=== PATIENT | female | born 1975 | race Caucasian/White ===

== ENCOUNTER 2024-06-26 17:41 | Inpatient (IN) | payer SELFPAY ==
[~2024-06-26] VITALS: Ht 165.1 cm; Wt 64.0 kg
[2024-06-26 18:38] LABS: Urine Bacteria None Seen /hpf (None Seen)
[2024-06-26 19:04] LABS: Amphetamine Screen, Urine Neg (NEGATIVE); Barbiturate Scree,Urine Neg (NEGATIVE); Benzodiazephine Screen, Urine Neg (NEGATIVE); Cannabinoid Screen, Urine Neg (NEGATIVE); Cocaine Screen, Urine Neg (NEGATIVE); Opiate Scree,Urine Pos (NEGATIVE); Phencyclidine Screen, Urine Neg (NEGATIVE)
[2024-06-26 19:19] LABS: Urine Blood 3+ /uL (Negative); Urine Clarity Ex.Turbid (Clear); Urine Color Dark-Red (Yellow); Urine Protein, UAD 2+ (Negative); Urine Specific Gravity 1.018 (1.001-1.035); Urine Urobilinogen Normal (Negative); Urine pH 6.5 (5.0-9.0)
[2024-06-26 19:25] VITALS: PULSE 92; RESP 9; O2SAT 97
--- NOTE | 2024-06-26 19:30 | DVH ---
INDICATION: VAG BLEED TECHNIQUE: Multiple real-time grayscale transabdominal and endovaginal sonographic images along with color and duplex Doppler of the uterus and ovaries were obtained. COMPARISON: None FINDINGS: The uterus measures 13.2 x 7.6 x 7.9 cm. The endometrial stripe measures 1.8 cm. Nabothian cysts measuring up to 2.0 cm. The right ovary measures 4.3 x 3.8 x 5.7 cm. Right ovarian cyst measuring up to 3.8 cm. The left ovary measures 5.7 x 2.6 x 3.8 cm. Left ovarian dominant follicle. Subsequent color and duplex Doppler interrogation of the ovaries demonstrated symmetric vascular flow to both ovaries, though this does not exclude the possibility of torsion due to the dual blood suppl y. Heterogenously hyperechoic structures within the vaginal canal, likely blood products. IMPRESSION: 1. Thickened endometrium measuring 1.8 cm. Could represent hyperplasia, with malignancy not excluded. Tissue sampling is recommended. 2. Right ovarian simple cyst, for which no routine sonographic follow-up is necessary. 3. Probable blood products within the vaginal canal. 4. Enlarged, bulky uterus, without focal lesion identified on the provided images. 5. Nabothian cyst. HS:Y
[2024-06-26 19:32] LABS: Urine WBC 5 /hpf (0 - 5)
--- NOTE | 2024-06-26 19:39 | ED.PDOC ---
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 48-year-old female presents to the emergency department for evaluation of at least two day history of worsening vaginal bleed with clots and associated pelvic abdominal pain and nausea. Patient has been experiencing associated dizziness and shortness of breath with exertion. She said she never had any blood transfusions before. In triage patient was tachycardic at 1:28 a.m.. Blood pressure was stable. Patient denies taking any medications [id number]. Patient denies any use of drugs. Past Medcial History: Glaucoma Past Surgical History: DNC REVIEW OF SYSTEMS: CONSTITUTIONAL: Denies acute: fever, diaphoresis, chills, HEAD: Denies acute: headache, photophobia Eyes: Denies acute: Double vision, vision loss, eye pain, eye discharge. EARS: Denies acute: tinnitus, hearing loss, ear discharge, ear pain, THROAT: Denies acute: sore throat, swelling, difficulty swallowing , pain with swallowing, change in voice. NECK: Denies acute: neck pain, neck swelling, stiff neck. HEART: Denies acute : chest pain, palpitations, LUNGS: Denies acute: , wheezing, cough, hemoptysis ABDOMEN: Denies acute: abdominal pain, Nausea, Vomiting, diarrhea, melena , hematemesis, hematochezia SKIN: Denies acute: rash, redness, lesions, itchiness. EXTREMITIES: Denies acute: calf pain, numbness, tingling, weakness, denies pain in extremity. Denies acute: Low back pain. Neuro: Denies acute: focal neurological deficit, motor or sensory focal neurological deficit, tremors, seizure like activity, confusion, change in mental status, loss of bowel or bladder function, cauda equina like symptoms. : Denies acute: dysuria, hematuria, flank pain, increase in urinary frequency. PSYCH: Denies acute: hallucination, suicidal ideation, homicidal ideation. FEMALE: Denies acute: foul odor, unusual discharge. PHYSICAL EXAM: General: no acute distress, awake and alert. Head: normocephalic, atraumatic. Neck: supple, trachea is midline, no swelling. Throat: Normal phonation. Eyes:, no erythema, no purulent discharge, no proptosis, no icterus. Heart: regular tachycardic, no significant murmur appreciated. Lungs: no apparent respiratory distress, Able to speak in full sentences. No wheezing, no rhonchi, no crackles. No stridors Clear to auscultation bilaterally. Abdomen: Suprapubic tender to palpation, non distended, soft, no guarding, no rebound, + bowel sounds. Neuro: Awake, Alert, oriented to name, self, situation, follows commands GCS=15. Speech is normal. Skin: no petechia, no purpura, no cyanosis, slightly-pale, not jaundice. Lower extremities: --no - Pitting edema no deformity, no focal swelling, no calf TTP. Makes eye contact. moves all four extremities. Face: no apparent facial droop. Ambulating in the ED independently. Chief Complaint: Vaginal Bleed Time Seen by MD: 18:13 Allergies: Coded Allergies: NO KNOWN ALLERGIES (Unverified , 06/26/24) Information Source: Patient Was a procedure done? Was a procedure done?: No X-Ray, Labs, Meds, VS Vital Signs Date Time Temp Pulse Resp B/P (MAP) Pulse Ox O2 Delivery O2 Flow Rate FiO2 06/26/24 20:00 90 06/26/24 19:30 99.6 92 9 103/67 (79) 97 99.6 06/26/24 19:25 92 9 97 Room Air* 0 21 06/26/24 19:15 100 06/26/24 18:12 98.0 120 20 108/76 (87) 98 Lab Test 06/26/24 21:18 06/26/24 19:59 06/26/24 19:20 06/26/24 18:36 Range/Units Hemoglobin 6.5 *L 7.5 L 12.2-16.2 g/dL Hematocrit 20.5 #L 23.7 L 36.0-46.0 % Troponin I High Sensitivity 75 *H 41 *H </=34 ng/L Thyroid Stimulating Hormone (TSH) 2.35 0.55-4.78 uIU/mL Lactic Acid Level 1.6 0.4-2.0 mmol/L White Blood Count 8.7 4.4-10.8 10^3/uL Red Blood Count 2.71 L 4.0-5.20 10^6/uL Mean Corpuscular Volume 87.6 80.0-100.0 fL Mean Corpuscular Hemoglobin 27.8 L 28.0-32.0 pg Mean Corpuscular Hemoglobin Concent 31.8 L 32.0-36.0 g/dL Red Cell Distribution Width 13.5 11.8-14.3 % Platelet Count 397 140-450 10^3/uL Mean Platelet Volume 7.5 6.9-10.8 fL Neutrophils (%) (Auto) 88.3 H 37.0-80.0 % Lymphocytes (%) (Auto) 5.2 L 10.0-50.0 % Monocytes (%) (Auto) 6.2 0.0-12.0 % Eosinophils (%) (Auto) 0.1 0.0-7.0 % Basophils (%) (Auto) 0.2 0.0-2.0 % Neutrophils # (Auto) 7.7 1.6-8.6 10 ^3/uL Lymphocytes # (Auto) 0.5 0.4-5.4 10 ^3/uL Monocytes # (Auto) 0.5 0-1.3 10 ^3/uL Eosinophils # (Auto) 0 0-0.8 10 ^3/uL Basophils # (Auto) 0 0-0.2 10 ^3/uL Nucleated Red Blood Cells 0.0 % Prothrombin Time 11.3 9.3-11.8 sec Prothrombin Time INR 1.07 0.9-1.15 Activated Partial Thromboplast Time 24.1 L 24.5-34.5 SEC Sodium Level 140 136-145 mmol/L Potassium Level 3.1 L 3.5-5.1 mmol/L Chloride Level 106 98-107 mmol/L Carbon Dioxide Level 22 20-31 mmol/L Anion Gap 12 5-15 Blood Urea Nitrogen 8 L 9-23 mg/dL Creatinine 0.70 0.550-1.02 mg/dL Glomerular Filtration Rate Calc 107 >90 mL/min BUN/Creatinine Ratio 11.4 10.0-20.0 Serum Glucose 136 H 74-106 mg/dL Calcium Level 9.4 8.7-10.4 mg/dL Magnesium Level 1.8 1.6-2.6 mg/dL Total Bilirubin 0.3 0.2-1.0 mg/dL Aspartate Amino Transferase (AST) < 8 L 13-40 U/L Alanine Aminotransferase (ALT) 13 7-40 U/L Alkaline Phosphatase 47 46-116 U/L Total Protein 6.4 5.7-8.2 g/dL Albumin 4.3 3.2-4.8 g/dL Follicle Stimulating Hormone 13.53 SEE BELOW IU/L Luteinizing Hormone 1.9 IU/L Beta HCG, Quantitative 0.1 L 1.5-4.2 mIU/mL Urine Color Dark-red Yellow Urine Clarity Ex.turbid Clear Urine pH 6.5 5.0-9.0 Urine Specific [place] 1.018 1.001-1.035 Urine Protein 2+ H Negative Urine Ketones Negative Negative Urine Blood 3+ H Negative /uL Urine Nitrite Negative Negative Urine Bilirubin 2+ H Negative Urine Urobilinogen Normal Negative mg/dL Urine Leukocyte Esterase 1+ Negative /uL Urine RBC Tntc 0 - 4 /hpf Urine WBC 5 0 - 5 /hpf Urine Squamous Epithelial Cells Few <5 /hpf Urine Bacteria None seen None Seen /hpf Urine Glucose Normal Normal mg/dL Urine Opiates Screen Pos NEGATIVE Urine Fentanyl Screen Neg NEGATIVE Urine Barbiturates Screen Neg NEGATIVE Urine Phencyclidine Screen Neg NEGATIVE Urine Amphetamines Screen Neg NEGATIVE Urine Benzodiazepines Screen Neg NEGATIVE Urine Cocaine Screen Neg NEGATIVE Urine Cannabinoids Screen Neg NEGATIVE Current Medications Medications (Trade) Dose Ordered Sig/Mick Route Start Time Stop Time Status Last Admin Sodium Chloride 1,000 ml @ 1,000 mls/hr Q1H ONCE IV 06/26/24 18:15 06/26/24 19:14 DC 06/26/24 19:40 [place] [id number] Ph: [phone] DIAGNOSTIC IMAGING Diagnostic Imaging Report : [id number] Signed PATIENT: LIANNE CORDOVAACCT: [id number] UNIT: [id number] : 1975 LOC: ER ROOM / BED: / AGE / SEX: 48 / F ADM STATUS: REG ER SERVICE 0000 ORDERING PHYSICIAN: WALESKA JANG DO PROCEDURE(s): PELUS - PELVIC REASON: VAG BLEED ORDER NUMBER(s): [id number], ACCESSION NUMBER(s): [id number] INDICATION: VAG BLEED TECHNIQUE: Multiple real-time grayscale transabdominal and endovaginal sonographic images along with color and duplex Doppler of the uterus and ovaries were obtained. COMPARISON: None FINDINGS: The uterus measures 13.2 x 7.6 x 7.9 cm. The endometrial stripe measures 1.8 cm. Nabothian cysts measuring up to 2.0 cm. The right ovary measures 4.3 x 3.8 x 5.7 cm. Right ovarian cyst measuring up to 3.8 cm. The left ovary measures 5.7 x 2.6 x 3.8 cm. Left ovarian dominant follicle. Subsequent color and duplex Doppler interrogation of the ovaries demonstrated symmetric vascular flow to both ovaries, though this does not exclude the possibility of torsion due to the dual blood supply. Heterogenously hyperechoic structures within the vaginal canal, likely blood products. IMPRESSION: 1. Thickened endometrium measuring 1.8 cm. Could represent hyperplasia, with malignancy not excluded. Tissue sampling is recommended. 2. Right ovarian simple cyst, for which no routine sonographic follow-up is necessary. 3. Probable blood products within the vaginal canal. 4. Enlarged, bulky uterus, without focal lesion identified on the provided images. 5. Nabothian cyst. HS:Y ATED BY: GLO RUBIO DO DICTATED DATE/TIME: 06/26/241926 SIGNED BY: GLO RUBIO DO SIGNED DATE/TIME: 06/26/241926 CC: Time of 1ST Reevaluation: 21:59 (The case was discussed with the OB Gyne team (HPI, physical exam, labs and diagnostic tests that were available at the time of disposition, ED course, treatment plan) on the phone. They agreed to follow up with the patient in consult tomorrow. They recommended that patient gets a workup for FSH, LH, TSH, 2 units of packed red blood cells, [address] Chavez) Reevaluation 1ST: Unchanged Time of 2ND Reevaluation: 22:03 (Spoke with the admitting team who said they will order the blood products per OB Gyne recommendations and they were also ordered the LH) Patient Education/Counseling: Diagnosis, Treatment Family Education/Counseling: No Family Present Comments Patient presented with the above HPI.---vaginal bleed---workup was initiated. patient was found with the above mentioned diagnosis. Patient was given: Fluids. Patient ED course and VS have been stabilized. Patient has been reassessed in the ED and remained in a stable condition. Pertinent incidental findings were discussed with the patient and/or family. Patient/family voices understanding and is agreeable with plan. Patient has been observed in the ED adequate length of time to insure impr ovement/stability. patient was admitted to the medicine team for further evaluation and treatment of their presentation. OB Gyne was consulted. Patient will need blood product transfusion which will be managed by the medicine team. All the reports of any imaging studies that were ordered by myself were reviewed by myself. Departure 1 Departure Time of Disposition: 20:55 Impression: Primary Impression: Symptomatic anemia Additional Impressions: Menorrhagia Elevated troponin Disposition: ADMITTED INPATIENT Admit to: Tele Condition: Guarded Discharged With: Self Critical Care Note Critical Care Time?: Yes (45 min-critical care time only) WALESKA JANG DO Jun 26, 2024 19:39
[2024-06-26] MEDS: SODIUM CHLORIDE 0.9% 1,000 ML IV ONE (19:40)
[2024-06-26 19:48] LABS: Basophils # (auto) 0 10 ^3/uL (0-0.2); Basophils % (auto) 0.2 % (0.0-2.0); Eosinophils # (auto) 0 10 ^3/uL (0-0.8); Eosinophils % (auto) 0.1 % (0.0-7.0); Hematocrit 23.7 % (36.0-46.0); Hemoglobin 7.5 g/dL (12.2-16.2); Lymphocytes # (auto) 0.5 10 ^3/uL (0.4-5.4); Lymphocytes % (auto) 5.2 % (10.0-50.0); Mean Corpuscular Hemoglobin 27.8 pg (28.0-32.0); Mean Corpuscular Hgb Conc. 31.8 g/dL (32.0-36.0); Mean Corpuscular Volume 87.6 fL (80.0-100.0); Monocytes # (auto) 0.5 10 ^3/uL (0-1.3); Monocytes % (auto) 6.2 % (0.0-12.0); Neutrophils # (auto) 7.7 10 ^3/uL (1.6-8.6); Neutrophils % (auto) 88.3 % (37.0-80.0); Platelet Count (auto) 397 10^3/uL (140-450); Red Blood Cells 2.71 10^6/uL (4.0-5.20); Red Cell Distribution Width 13.5 % (11.8-14.3); White Blood Cell 8.7 10^3/uL (4.4-10.8)
[2024-06-26 20:08] LABS: Alanine Aminotransferase 13 U/L (7-40); Albumin 4.3 g/dL (3.2-4.8); Alkaline Phosphatase 47 U/L (46-116); Anion Gap 12 (5-15); Aspartate Aminotransferase < 8 U/L (13-40); BUN/Creatinine Ratio 11.4 (10.0-20.0); Bilirubin, Total 0.3 mg/dL (0.2-1.0); Blood Urea Nitrogen 8 mg/dL (9-23); Calcium 9.4 mg/dL (8.7-10.4); Carbon Dioxide 22 mmol/L (20-31); Chloride 106 mmol/L (98-107); Glucose 136 mg/dL (74-106); Magnesium 1.8 mg/dL (1.6-2.6); Potassium 3.1 mmol/L (3.5-5.1); Sodium 140 mmol/L (136-145); Total Protein 6.4 g/dL (5.7-8.2)
[2024-06-26 21:35] LABS: Hematocrit 20.5 % (36.0-46.0)
[2024-06-26 21:46] LABS: Hemoglobin 6.5 g/dL (12.2-16.2)
[2024-06-26] MEDS ORDERED: NITROGLYCERIN 0.4 MG SL TAB SL PRN (22:15)
[2024-06-26] MEDS ORDERED: TEMAZEPAM 15 MG CAP PO PRN (22:15)
[2024-06-26 22:45] LABS: INR 1.07 (0.9-1.15); Partial Thromboplastin Time 24.1 SEC (24.5-34.5); Prothrombin Time 11.3 sec (9.3-11.8)
[2024-06-26 23:20] VITALS: BP 95/63; PULSE 91; RESP 9; TEMP 99.9
[2024-06-26 23:40] VITALS: BP 108/65; PULSE 90; RESP 8; TEMP 99.9
[2024-06-26] MEDS: ACETAMINOPHEN 325 MG TAB PO PRN (23:56)
[2024-06-27] VITALS (11 sets, daily range): BP systolic 93–124; BP diastolic 50–75; PULSE 66–89; RESP 10–20; TEMP 98.2–99.5; O2SAT 98–100
--- NOTE | 2024-06-27 00:17 | DVHHP2 ---
History of Present Illness Reason for Visit: Vaginal bleed History of Present Illness 48-year-old female presents for evaluation of vaginal bleed. Patient reports having irregular bleeding that started a month ago and subsided. She states starting to bleed again two days ago, heavy clots and lower abdominal pain. She reports dizziness and shortness for breath. Denies chest pain. No other acute complaints reported. Past Medical History Glaucoma Past Surgical History D&C Family History Noncontributory Smoke: No ALCOHOL: occassional Drugs: None Lives: with Family Review of Systems Review of Systems Review of systems are currently negative otherwise addressed in HPI. Allergies: Coded Allergies: NO KNOWN ALLERGIES (Unverified , 06/26/24) Medications Current Medications Medications Dose Ordered Sig/Mick Route Start Time Stop Time Status Last Admin Dose Admin Temazepam 15 mg QHSP PRN PO 06/26/24 22:15 Ondansetron HCl 4 mg Q4HP PRN IV 06/26/24 22:15 Acetaminophen 650 mg Q6HP PRN PO 06/26/24 22:15 06/26/24 23:56 650 MG Nitroglycerin 0.4 mg Q5MINP PRN SL 06/26/24 22:15 Morphine Sulfate 2 mg Q30M PRN IV 06/26/24 22:15 Exam Vital Signs Vital Signs Date Time Temp Pulse Resp B/P (MAP) Pulse Ox O2 Delivery O2 Flow Rate FiO2 06/26/24 23:40 80 22 148/87 (107) 94 06/26/24 23:40 99.9 99.9 06/26/24 19:25 Room Air* 0 21 Exam Gen: 48-year-old female in mild distress Skin: Warm, dry, pale, no rash. HEENT: Normocephalic atraumatic, mucous membranes moist and pink. Neck: Cervical and supraclavicular nodes normal without enlargement, trachea is midline, thyroid gland is normal without masses. Pulmonary: Clear to auscultation and percussion bilaterally. Cardiac: Regular rate and rhythm. No murmur Abdomen: Soft, nontender, nondistended, bowel sounds present all 4 quadrants, no guarding, no rigidity, no organomegaly. Extremities: No cyanosis, clubbing, no edema Neuro: Cranial nerves II through XII grossly intact, normal affect and speech, no focal motor deficits. Labs/Xrays ORDERING PHYSICIAN: WALESKA JANG DO PROCEDURE(s): PELUS - PELVIC REASON: VAG BLEED ORDER NUMBER(s): [id number], ACCESSION NUMBER(s): [id number] INDICATION: VAG BLEED TECHNIQUE: Multiple real-time grayscale transabdominal and endovaginal sonog raphic images along with color and duplex Doppler of the uterus and ovaries were obtained. COMPARISON: None FINDINGS: The uterus measures 13.2 x 7.6 x 7.9 cm. The endometrial stripe measures 1.8 cm. Nabothian cysts measuring up to 2.0 cm. The right ovary measures 4.3 x 3.8 x 5.7 cm. Right ovarian cyst measuring up to 3.8 cm. The left ovary measures 5.7 x 2.6 x 3.8 cm. Left ovarian dominant follicle. Subsequent color and duplex Doppler interrogation of the ovaries demonstrated symmetric vascular flow to both ovaries, though this does not exclude the possibility of torsion due to the dual blood supply. Heterogenously hyperechoic structures within the vaginal canal, likely blood products. IMPRESSION: 1. Thickened endometrium measuring 1.8 cm. Could represent hyperplasia, with malignancy not excluded. Tissue sampling is recommended. 2. Right ovarian simple cyst, for which no routine sonographic follow-up is necessary. 3. Probable blood products within the vaginal canal. 4. Enlarged, bulky uterus, without focal lesion identified on the provided images. 5. Nabothian cyst. HS:Y Labs Test 06/26/24 22:19 06/26/24 21:18 06/26/24 19:59 06/26/24 19:20 Range/Units Troponin I High Sensitivity 75 *H </=34 ng/L Hemoglobin 6.5 *L 12.2-16.2 g/dL Hematocrit 20.5 #L 36.0-46.0 % Thyroid Stimulating Hormone (TSH) 2.35 0.55-4.78 uIU/mL Lactic Acid Level 1.6 0.4-2.0 mmol/L White Blood Count 8.7 4.4-10.8 10^3/uL Red Blood Count 2.71 L 4.0-5.20 10^6/uL Mean Corpuscular Volume 87.6 80.0-100.0 fL Mean Corpuscular Hemoglobin 27.8 L 28.0-32.0 pg Mean Corpuscular Hemoglobin Concent 31.8 L 32.0-36.0 g/dL Red Cell Distribution Width 13.5 11.8-14.3 % Platelet Count 397 140-450 10^3/uL Mean Platelet Volume 7.5 6.9-10.8 fL Neutrophils (%) (Auto) 88.3 H 37.0-80.0 % Lymphocytes (%) (Auto) 5.2 L 10.0-50.0 % Monocytes (%) (Auto) 6.2 0.0-12.0 % Eosinophils (%) (Auto) 0.1 0.0-7.0 % Basophils (%) (Auto) 0.2 0.0-2.0 % Neutrophils # (Auto) 7.7 1.6-8.6 10 ^3/uL Lymphocytes # (Auto) 0.5 0.4-5.4 10 ^3/uL Monocytes # (Auto) 0.5 0-1.3 10 ^3/uL Eosinophils # (Auto) 0 0-0.8 10 ^3/uL Basophils # (Auto) 0 0-0.2 10 ^3/uL Nucleated Red Blood Cells 0.0 % Prothrombin Time 11.3 9.3-11.8 sec Prothrombin Time INR 1.07 0.9-1.15 Activated Partial Thromboplast Time 24.1 L 24.5-34.5 SEC Sodium Level 140 136-145 mmol/L Potassium Level 3.1 L 3.5-5.1 mmol/L Chloride Level 106 98-107 mmol/L Carbon Dioxide Level 22 20-31 mmol/L Anion Gap 12 5-15 Blood Urea Nitrogen 8 L 9-23 mg/dL Creatinine 0.70 0.550-1.02 mg/dL Glomerular Filtration Rate Calc 107 >90 mL/min BUN/Creatinine Ratio 11.4 10.0-20.0 Serum Glucose 136 H 74-106 mg/dL Calcium Level 9.4 8.7-10.4 mg/dL Magnesium Level 1.8 1.6-2.6 mg/dL Total Bilirubin 0.3 0.2-1.0 mg/dL Aspartate Amino Transferase (AST) < 8 L 13-40 U/L Alanine Aminotransferase (ALT) 13 7-40 U/L Alkaline Phosphatase 47 46-116 U/L Total Protein 6.4 5.7-8.2 g/dL Albumin 4.3 3.2-4.8 g/dL Follicle Stimulating Hormone 13.53 SEE BELOW IU/L Luteinizing Hormone 1.9 IU/L Beta HCG, Quantitative 0.1 L 1.5-4.2 mIU/mL Test 06/26/24 18:36 Range/Units Urine Color Dark-red Yellow Urine Clarity Ex.turbid Clear Urine pH 6.5 5.0-9.0 Urine Specific [place] 1.018 1.001-1.035 Urine Protein 2+ H Negative Urine Ketones Negative Negative Urine Blood 3+ H Negative /uL Urine Nitrite Negative Negative Urine Bilirubin 2+ H Negative Urine Urobilinogen Normal Negative mg/dL Urine Leukocyte Esterase 1+ Negative /uL Urine RBC Tntc 0 - 4 /hpf Urine WBC 5 0 - 5 /hpf Urine Squamous Epithelial Cells Few <5 /hpf Urine Bacteria None seen None Seen /hpf Urine Glucose Normal Normal mg/dL Urine Opiates Screen Pos NEGATIVE Urine Fentanyl Screen Neg NEGATIVE Urine Barbiturates Screen Neg NEGATIVE Urine Phencyclidine Screen Neg NEGATIVE Urine Amphetamines Screen Neg NEGATIVE Urine Benzodiazepines Screen Neg NEGATIVE Urine Cocaine Screen Neg NEGATIVE Urine Cannabinoids Screen Neg NEGATIVE Assessment/Plan Assessment/Plan Assessment Symptomatic anemia Vaginal bleed Hypokalemia Plan Admit the patient to telemetry to the hospitalist OBGYN consultation 2 units of packed red cells, one pain ordered Keep hemoglobin above seven Continue treatment per orders. Plan discussed with: Patient My Orders Orders - JERMAIN KILGORE M AGACNP Procedure Category Date Status Time Packedcells -Active BBK 06/26/24 In Process Bleeding 22:02 Frozen Plasma BBK 06/26/24 In Process 22:02 * Cardiology Consult CONS 06/26/24 Transmitted 22:02 Admit ADMIT 06/26/24 Transmitted 22:02 Temazepam (Restoril) PHA 06/26/24 In Process 22:15 Ondansetron Hcl PHA 06/26/24 In Process (Zofran) 22:15 Complete Blood Count LAB 06/27/24 Logged 04:00 Comprehensive LAB 06/27/24 Logged Metabolic Panel 04:00 Echo 2d Mode Cardiac US 06/26/24 Logged DOP 22:02 Condition: Fair PATRICE 06/26/24 In Process 22:02 Acetaminophen Tablet PHA 06/26/24 In Process (Tylenol Tablet) 22:15 Bedrest With Bathroom [facility] 06/26/24 In Process Privileg 22:02 Nitroglycerin [facility] 06/26/24 In Process Sublingual (Ntrostat 22:15 Morphine Sulfate PHA 06/26/24 In Process Injection 22:15 Stat Ekg For Chest [facility] 06/26/24 In Process Pain 22:02 Notify Md Of Changes [facility] 06/26/24 In Process From Base 22:02 Dairy Equipment Specialist For [facility] 06/26/24 In Process 24 Hours 22:02 Emergency Dysrhythmia [facility] 06/26/24 In Process Protocol 22:02 Rhythm Strips Once [facility] 06/26/24 In Process Every Shift 22:02 Oxygen By Nasal RT 06/26/24 Transmitted Cannula 22:02 Ceftriaxone Ivpb PHA 06/27/24 Verified Rocephin 09:00 Date of Service: Jun 26, 2024 Billing Provider: JERMAIN KILGORE Common Visit Codes: [id number] INP/OBS CARE (HIGH) JERMAIN KILGORE Jun 27, 2024 00:17
[2024-06-27] MEDS: ONDANSETRON HCL 4 MG/2 ML VIAL IV PRN (01:17)
[2024-06-27] MEDS: MORPHINE SULFATE INJ 2 MG/ml SYRG IV PRN (01:17)
--- NOTE | 2024-06-27 08:31 | DVHINCON2 ---
Date Seen: Jun 27, 2024 Referring Physician ROBB Brar Reason for Consultation Elevated trop History of Present Illness This is a pleasant 48-year-old female who presented to the emergency room with a chief complaint of menorrhagia for two days. The patient complains of heavy vaginal bleed associated with golf ball-sized clots, change of pads q2h, pelvic pain, dizziness, and BRISCOE. She started her cycle on 06/23/2024. Denies chest pain, palpitations, diaphoresis, or syncopal events. She presented in a sinus tachycardia rhythm in the 120s bpm and found with a hgb level as low as 6.5 g/dL for which she underwent blood/FFP transfusions. The heart rate has normalized after transfusions. Cardiology consulted given a troponin level peaking at 75 ng/L. Significant medical history includes glaucoma, D&C in 2004, self- diagnosed anemia, and A2. Past Medical History Past medical history reviewed. No other significant than mentioned above. Past Surgical History D&C in 2004 Family History Family history reviewed. Social History Denies the use of illicit drugs, alcohol, or tobacco use. Allergies: Coded Allergies: NO KNOWN ALLERGIES (Unverified , 06/26/24) Home Meds Home medications reviewed. Current Medications Current Medications Medications (Trade) Dose Ordered Sig/Mick Route PRN Reason Start Time Stop Time Status Last Admin Temazepam (Restoril) 15 mg QHSP PRN PO FOR INSOMNIA 06/26/24 22:15 Ondansetron HCl (Zofran) 4 mg Q4HP PRN IV NAUSEA / VOMITING 06/26/24 22:15 06/27/24 01:17 Acetaminophen (Tylenol Tablet) 650 mg Q6HP PRN PO PAIN SCALE 1-3 OR TEMP>100.4 06/26/24 22:15 06/26/24 23:56 Nitroglycerin (Ntrostat Sublingual) 0.4 mg Q5MINP PRN SL FOR CHEST PAIN 06/26/24 22:15 Morphine Sulfate 2 mg Q30M PRN IV FOR CHEST PAIN 06/26/24 22:15 06/27/24 01:17 Ceftriaxone Sodium 50 ml @ 100 mls/hr DAILY@09 IV 06/27/24 09:00 Review of Systems Constitutional: No symptom reported Ears, Nose, & Throat: No symptom reported Eyes: No symptom reported Neurological: Dizziness Pulmonary/Respiratory: SOB Cardiovascular: No symptom reported Gastrointestinal: No symptom reported Genitourinary: Menorrhagia Musculoskeletal: No symptom reported Skin: No symptom reported Psychiatric: No symptom reported Endocrine: No symptom reported Hemotologic/Lymphatic: No symptom reported Vital Signs Vital Signs Date Time Temp Pulse Resp B/P (MAP) Pulse Ox O2 Delivery O2 Flow Rate FiO2 06/27/24 08:00 83 9 121/73 (89) 99 06/27/24 06:15 98.8 98.8 06/26/24 19:25 Room Air* 0 21 Physical Exam General Appearance: Cooperative. Well developed. Well nourished. In no acute distress Head Exam: Normal inspection Neck Exam: Normal inspection. Non-tender. Normal alignment Pulmonary/Respiratory: Chest non-tender. Clear bilateral breath sounds Cardiovascular/Chest: Regular rate and rhythm. S1, S2. NSr. No murmurs. No JVD. Peripheral Pulses: 2+ Radial (R). 2+ Radial (L). 2+ Pedal (R). 2+ Pedal (L) Abdominal Exam: Normal bowel sounds. Soft. Nontender. No hepatospenomegaly. No masses Ankle Exam: Negative ankle edema Lower extremities: Negative lower extremity edema Neuro/Mental Status: A&O x4. Coherent Thoughts/Psych: Normal thought pattern. Appropriate mood and affect. Good judgement and insight Appearance: In no acute distress Skin Exam: Normal inspection. Pale color. Warm. Dry Labs/Diagnostic Data Labs Test 06/26/24 22:19 06/26/24 21:18 06/26/24 19:59 06/26/24 19:20 Range/Units Troponin I High Sensitivity 75 *H </=34 ng/L Hemoglobin 6.5 *L 12.2-16.2 g/dL Hematocrit 20.5 #L 36.0-46.0 % Thyroid Stimulating Hormone (TSH) 2.35 0.55-4.78 uIU/mL Lactic Acid Level 1.6 0.4-2.0 mmol/L White Blood Count 8.7 4.4-10.8 10^3/uL Red Blood Count 2.71 L 4.0-5.20 10^6/uL Mean Corpuscular Volume 87.6 80.0-100.0 fL Mean Corpuscular Hemoglobin 27.8 L 28.0-32.0 pg Mean Corpuscular Hemoglobin Concent 31.8 L 32.0-36.0 g/dL Red Cell Distribution Width 13.5 11.8-14.3 % Platelet Count 397 140-450 10^3/uL Mean Platelet Volume 7.5 6.9-10.8 fL Neutrophils (%) (Auto) 88.3 H 37.0-80.0 % Lymphocytes (%) (Auto) 5.2 L 10.0-50.0 % Monocytes (%) (Auto) 6.2 0.0-12.0 % Eosinophils (%) (Auto) 0.1 0.0-7.0 % Basophils (%) (Auto) 0.2 0.0-2.0 % Neutrophils # (Auto) 7.7 1.6-8.6 10 ^3/uL Lymphocytes # (Auto) 0.5 0.4-5.4 10 ^3/uL Monocytes # (Auto) 0.5 0-1.3 10 ^3/uL Eosinophils # (Auto) 0 0-0.8 10 ^3/uL Basophils # (Auto) 0 0-0.2 10 ^3/uL Nucleated Red Blood Cells 0.0 % Prothrombin Time 11.3 9.3-11.8 sec Prothrombin Time INR 1.07 0.9-1.15 Activated Partial Thromboplast Time 24.1 L 24.5-34.5 SEC Sodium Level 140 136-145 mmol/L Potassium Level 3.1 L 3.5-5.1 mmol/L Chloride Level 106 98-107 mmol/L Carbon Dioxide Level 22 20-31 mmol/L Anion Gap 12 5-15 Blood Urea Nitrogen 8 L 9-23 mg/dL Creatinine 0.70 0.550-1.02 mg/dL Glomerular Filtration Rate Calc 107 >90 mL/min BUN/Creatinine Ratio 11.4 10.0-20.0 Serum Glucose 136 H 74-106 mg/dL Calcium Level 9.4 8.7-10.4 mg/dL Magnesium Level 1.8 1.6-2.6 mg/dL Total Bilirubin 0.3 0.2-1.0 mg/dL Aspartate Amino Transferase (AST) < 8 L 13-40 U/L Alanine Aminotransferase (ALT) 13 7-40 U/L Alkaline Phosphatase 47 46-116 U/L Total Protein 6.4 5.7-8.2 g/dL Albumin 4.3 3.2-4.8 g/dL Follicle Stimulating Hormone 13.53 SEE BELOW IU/L Luteinizing Hormone 1.9 IU/L Beta HCG, Quantitative 0.1 L 1.5-4.2 mIU/mL Test 06/26/24 18:36 Range/Units Urine Color Dark-red Yellow Urine Clarity Ex.turbid Clear Urine pH 6.5 5.0-9.0 Urine Specific [place] 1.018 1.001-1.035 Urine Protein 2+ H Negative Urine Ketones Negative Negative Urine Blood 3+ H Negative /uL Urine Nitrite Negative Negative Urine Bilirubin 2+ H Negative Urine Urobilinogen Normal Negative mg/dL Urine Leukocyte Esterase 1+ Negative /uL Urine RBC Tntc 0 - 4 /hpf Urine WBC 5 0 - 5 /hpf Urine Squamous Epithelial Cells Few <5 /hpf Urine Bacteria None seen None Seen /hpf Urine Glucose Normal Normal mg/dL Urine Opiates Screen Pos NEGATIVE Urine Fentanyl Screen Neg NEGATIVE Urine Barbiturates Screen Neg NEGATIVE Urine Phencyclidine Screen Neg NEGATIVE Urine Amphetamines Screen Neg NEGATIVE Urine Benzodiazepines Screen Neg NEGATIVE Urine Cocaine Screen Neg NEGATIVE Urine Cannabinoids Screen Neg NEGATIVE Assessment Menorrhagia with severe anemia NSTEMI type 2 secondary to above Rule out pelvic malignancy Hx D&C in 2004 A2 Plan/Recommendation (Dr. Soto) The patient presents as an NSTEMI type 2 secondary to menorrhagia with severe an emia. We recommend close monitoring of H&H, volume resuscitation, and follow-up on mri manager recommendations. Replete electrolytes as necessary. Blood work ordered, primary care team to follow. There is no further cardiac workup indicated at this time. Thank you for allowing us to participate in this patient's care. Please call if you have any questions or concerns. This medical document was created using an electronic medical record system with voice recognition software and computerized dictation system. Although this document has been carefully reviewed, there might still be some phonetic and typographical errors. Occasional wrong-word or ``sound-alike substitutions may have occurred due to the inherent limitations of voice recognition software. These areas are purely typographical due to imperfections of the software programs and do not reflect any compromise in the patient's medical care. Please read the chart carefully and recognize, using context, where these substitutions have occurred. Plan discussed with: Patient, Other Date of Service: Jun 27, 2024 Billing Provider: YUE SOTO MD Cardiology Common Codes: 75581-CNOBCTS INP/OBS CARE (High) CARLEY RUBY [facility] Jun 27, 2024 08:31
--- NOTE | 2024-06-27 08:33 | DVHINCON2 ---
Date of service: Jun 27, 2024 Reason for Consultation menorrhagia History of Present Illness 48yo female pt reports having excessive vaginal bleeding and irregular menses, feels a little better after blood transfusion. Denies dizziness when laying down. Pt does not have health insurance. 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, bleeds for 2 weeks then spots for 1 week then bleeds for 2 weeks again, LMP started 06/23/24, moderate to heavy flow with clots and cramping pain, takes ibuprofen/norco PRN and uses heating pad at home for pain mgmt Last PAP was normal in 2017, pt reports having new sexual partner since, denies receiving Gardasil vaccine in the past OB hx: , NSVDx5, TABx1, SABx1 with D&C in 2004 Past Medical History Anemia Past Surgical History D&C in 2004 Family History mother: had heavy periods and had hysterectomy at age 36 paternal grandmother: ovarian cancer Social History denies Allergies: Coded Allergies: NO KNOWN ALLERGIES (Unverified , 06/26/24) 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 Current Medications Current Medications Medications (Trade) Dose Ordered Sig/Mick Route PRN Reason Start Time Stop Time Status Last Admin Temazepam (Restoril) 15 mg QHSP PRN PO FOR INSOMNIA 06/26/24 22:15 Ondansetron HCl (Zofran) 4 mg Q4HP PRN IV NAUSEA / VOMITING 06/26/24 22:15 06/27/24 01:17 Acetaminophen (Tylenol Tablet) 650 mg Q6HP PRN PO PAIN SCALE 1-3 OR TEMP>100.4 06/26/24 22:15 06/26/24 23:56 Nitroglycerin (Ntrostat Sublingual) 0.4 mg Q5MINP PRN SL FOR CHEST PAIN 06/26/24 22:15 Morphine Sulfate 2 mg Q30M PRN IV FOR CHEST PAIN 06/26/24 22:15 06/27/24 01:17 Ceftriaxone Sodium 50 ml @ 100 mls/hr DAILY@09 IV 06/27/24 09:00 Review of Systems Review of systems are currently negative otherwise addressed in HPI. Vital Signs Vital Signs Date Time Temp Pulse Resp B/P (MAP) Pulse Ox O2 Delivery O2 Flow Rate FiO2 06/27/24 08:00 83 9 121/73 (89) 99 06/27/24 06:15 98.8 98.8 06/26/24 19:25 Room Air* 0 21 Physical Exam : light vaginal bleeding noted on peripad Labs/Diagnostic Data [place] [address] Ph: [phone] DIAGNOSTIC IMAGING Diagnostic Imaging Report : [id number] Signed PATIENT: LIANNE CORDOVAACCT: [id number] UNIT: [id number] : 1975 LOC: ER ROOM / BED: / AGE / SEX: 48 / F ADM STATUS: REG ER SERVICE 0000 ORDERING PHYSICIAN: WALESKA JANG DO PROCEDURE(s): PELUS - PELVIC REASON: VAG BLEED ORDER NUMBER(s): [id number], ACCESSION NUMBER(s): [id number] INDICATION: VAG BLEED TECHNIQUE: Multiple real-time grayscale transabdominal and endovaginal sonographic images along with color and duplex Doppler of the uterus and ovaries were obtained. COMPARISON: None FINDINGS: The uterus measures 13.2 x 7.6 x 7.9 cm. The endometrial stripe measures 1.8 cm. Nabothian cysts measuring up to 2.0 cm. The right ovary measures 4.3 x 3.8 x 5.7 cm. Right ovarian cyst measuring up to 3.8 cm. The left ovary measures 5.7 x 2.6 x 3.8 cm. Left ovarian dominant follicle. Subsequent color and duplex Doppler interrogation of the ovaries demonstrated symmetric vascular flow to both ovaries, though this does not exclude the possibility of torsion due to the dual blood supply. Heterogenously hyperechoic structures within the vaginal canal, likely blood products. IMPRESSION: 1. Thickened endometrium measuring 1.8 cm. Could represent hyperplasia, with malignancy not excluded. Tissue sampling is recommended. 2. Right ovarian simple cyst, for which no routine sonographic follow-up is necessary. 3. Probable blood products within the vaginal canal. 4. Enlarged, bulky uterus, without focal lesion identified on the provided images. 5. Nabothian cyst. HS:Y ATED BY: GLO RUBIO DO DICTATED DATE/TIME: 06/26/241926 SIGNED BY: GLO RUBIO DO SIGNED DATE/TIME: 06/26/241926 CC: Labs Test 06/26/24 22:19 06/26/24 21:18 06/26/24 19:59 06/26/24 19:20 Range/Units Troponin I High Sensitivity 75 *H </=34 ng/L Hemoglobin 6.5 *L 12.2-16.2 g/dL Hematocrit 20.5 #L 36.0-46.0 % Thyroid Stimulating Hormone (TSH) 2.35 0.55-4.78 uIU/mL Lactic Acid Level 1.6 0.4-2.0 mmol/L White Blood Count 8.7 4.4-10.8 10^3/uL Red Blood Count 2.71 L 4.0-5.20 10^6/uL Mean Corpuscular Volume 87.6 80.0-100.0 fL Mean Corpuscular Hemoglobin 27.8 L 28.0-32.0 pg Mean Corpuscular Hemoglobin Concent 31.8 L 32.0-36.0 g/dL Red Cell Distribution Width 13.5 11.8-14.3 % Platelet Count 397 140-450 10^3/uL Mean Platelet Volume 7.5 6.9-10.8 fL Neutrophils (%) (Auto) 88.3 H 37.0-80.0 % Lymphocytes (%) (Auto) 5.2 L 10.0-50.0 % Monocytes (%) (Auto) 6.2 0.0-12.0 % Eosinophils (%) (Auto) 0.1 0.0-7.0 % Basophils (%) (Auto) 0.2 0.0-2.0 % Neutrophils # (Auto) 7.7 1.6-8.6 10 ^3/uL Lymphocytes # (Auto) 0.5 0.4-5.4 10 ^3/uL Monocytes # (Auto) 0.5 0-1.3 10 ^3/uL Eosinophils # (Auto) 0 0-0.8 10 ^3/uL Basophils # (Auto) 0 0-0.2 10 ^3/uL Nucleated Red Blood Cells 0.0 % Prothrombin Time 11.3 9.3-11.8 sec Prothrombin Time INR 1.07 0.9-1.15 Activated Partial Thromboplast Time 24.1 L 24.5-34.5 SEC Sodium Level 140 136-145 mmol/L Potassium Level 3.1 L 3.5-5.1 mmol/L Chloride Level 106 98-107 mmol/L Carbon Dioxide Level 22 20-31 mmol/L Anion Gap 12 5-15 Blood Urea Nitrogen 8 L 9-23 mg/dL Creatinine 0.70 0.550-1.02 mg/dL Glomerular Filtration Rate Calc 107 >90 mL/min BUN/Creatinine Ratio 11.4 10.0-20.0 Serum Glucose 136 H 74-106 mg/dL Calcium Level 9.4 8.7-10.4 mg/dL Magnesium Level 1.8 1.6-2.6 mg/dL Total Bilirubin 0.3 0.2-1.0 mg/dL Aspartate Amino Transferase (AST) < 8 L 13-40 U/L Alanine Aminotransferase (ALT) 13 7-40 U/L Alkaline Phosphatase 47 46-116 U/L Total Protein 6.4 5.7-8.2 g/dL Albumin 4.3 3.2-4.8 g/dL Follicle Stimulating Hormone 13.53 SEE BELOW IU/L Luteinizing Hormone 1.9 IU/L Beta HCG, Quantitative 0.1 L 1.5-4.2 mIU/mL Test 06/26/24 18:36 Range/Units Urine Color Dark-red Yellow Urine Clarity Ex.turbid Clear Urine pH 6.5 5.0-9.0 Urine Specific [place] 1.018 1.001-1.035 Urine Protein 2+ H Negative Urine Ketones Negative Negative Urine Blood 3+ H Negative /uL Urine Nitrite Negative Negative Urine Bilirubin 2+ H Negative Urine Urobilinogen Normal Negative mg/dL Urine Leukocyte Esterase 1+ Negative /uL Urine RBC Tntc 0 - 4 /hpf Urine WBC 5 0 - 5 /hpf Urine Squamous Epithelial Cells Few <5 /hpf Urine Bacteria None seen None Seen /hpf Urine Glucose Normal Normal mg/dL Urine Opiates Screen Pos NEGATIVE Urine Fentanyl Screen Neg NEGATIVE Urine Barbiturates Screen Neg NEGATIVE Urine Phencyclidine Screen Neg NEGATIVE Urine Amphetamines Screen Neg NEGATIVE Urine Benzodiazepines Screen Neg NEGATIVE Urine Cocaine Screen Neg NEGATIVE Urine Cannabinoids Screen Neg NEGATIVE Plan Repeat CBC ordered for 1200 today 06/27/24 Potassium 40mEq PO once ordered Pt has resources on how to apply for medi-simone. Once pt has insurance, pt given Ishmael Chowdhury CNM's business card with [employer] office information to book an appt for EMB work-up and PAP. Discussed findings with Dr. Chavez and agrees with POC. Thank you for the consultation! Plan discussed with: Patient Problems List: (1) Hypokalemia Status: Acute (2) Blood transfusion during current hospitalisation Status: Acute (3) Menorrhagia Status: Acute (4) Symptomatic anemia Status: Acute JOSE CHOWDHURY [facility] Jun 27, 2024 08:32
[2024-06-27] MEDS: POTASSIUM CHL 20 Meq TABLET PO ONE (09:09)
[2024-06-27] MEDS: cefTRIAXone 1GM/50ML D5W 50 ML IV SCH (09:09)
[2024-06-27] MEDS: MAGNESIUM SULFATE 1GM/100ML 100 ML IV ONE (10:31)
[2024-06-27 12:09] LABS: Basophils # (auto) 0 10 ^3/uL (0-0.2); Eosinophils # (auto) 0 10 ^3/uL (0-0.8); Hemoglobin 8.1 g/dL (12.2-16.2); Lymphocytes # (auto) 0.5 10 ^3/uL (0.4-5.4); Monocytes # (auto) 0.3 10 ^3/uL (0-1.3)
[2024-06-27 12:12] LABS: Basophils % (auto) 0.6 % (0.0-2.0); Eosinophils % (auto) 0.5 % (0.0-7.0); Hematocrit 23.8 % (36.0-46.0); Lymphocytes % (auto) 15.2 % (10.0-50.0); Mean Corpuscular Hemoglobin 29.5 pg (28.0-32.0); Mean Corpuscular Hgb Conc. 34.1 g/dL (32.0-36.0); Mean Corpuscular Volume 86.6 fL (80.0-100.0); Monocytes % (auto) 9.9 % (0.0-12.0); Neutrophils # (auto) 2.4 10 ^3/uL (1.6-8.6); Neutrophils % (auto) 73.8 % (37.0-80.0); Platelet Count (auto) 258 10^3/uL (140-450); Red Blood Cells 2.75 10^6/uL (4.0-5.20); White Blood Cell 3.3 10^3/uL (4.4-10.8)
[2024-06-27 12:33] LABS: Alanine Aminotransferase 11 U/L (7-40); Albumin 3.7 g/dL (3.2-4.8); Alkaline Phosphatase 39 U/L (46-116); Anion Gap 4 (5-15); Aspartate Aminotransferase < 8 U/L (13-40); BUN/Creatinine Ratio 11.5 (10.0-20.0); Bilirubin, Total 0.4 mg/dL (0.2-1.0); Blood Urea Nitrogen 6 mg/dL (9-23); Calcium 8.8 mg/dL (8.7-10.4); Carbon Dioxide 27 mmol/L (20-31); Chloride 110 mmol/L (98-107); Glucose 120 mg/dL (74-106); Potassium 4.1 mmol/L (3.5-5.1); Sodium 141 mmol/L (136-145); Total Protein 5.3 g/dL (5.7-8.2)
--- NOTE | 2024-06-27 13:16 | DVHSR ---
APPROVED REPORT EXAM: Two-dimensional and M-mode echocardiogram with Doppler and color Doppler. Blood Pressure: 105/68 mmHg INDICATION EF RISK FACTORS Height: 5'5", Weight: 146 DIMENSIONS LVDd4.7 (3.8-5.7cm)LA (2D)3.5 (1.9-4.0cm)Aortic Root2.8 (2.0-3.7cm) LVDs3.0 (2.5-4.0cm)LA (MM) (1.9-4.0cm)Aortic Cusp Exc2.0 (1.5-2.0cm) EF (%) 65.0 (55-70%)Rt. Atrium3.5 (1.9-4.0cm)Asc. Aorta cm IVSd0.8 (0.7-1.1cm)RV (D)3.5 (1.8-2.4cm) PWd0.8 (0.7-1.1cm) Mitral Valve MitralMitral Stenosis E wave0.88m/sMV Mean GR.mmHg A wave0.91m/sMV Peak GR.mmHg E/A ratio1.02D MVAcm2 DECEL [id number] 1/2 Timems Aortic Valve Aortic ValveAortic Stenosis V11.12m/Elisa Mean GR.5mmHg V21.51m/Elisa Peak GR.9mmHg LVOT Diameter2.0 (1.8-2.4cm)Doppler AVA2.33cm2 Pulmonic Valve V20.96m/s Tricuspid Valve TR Velocity2.27m/s [id number] Conclusion Normal left ventricular size and dimension. Normal left ventricular systolic function estimated ejec tion fraction 55%. There is a grade 1 diastolic dysfunction. Normal right ventricular size and dimension. Normal right ventricular systolic function. Normal biatrial size and dimension. Normal aortic valve structure and function. Normal mitral valve structure and function. Normal tricuspid valve structure and function. The pulmonary valve is grossly normal. No pericardial effusion.
[2024-06-27] MEDS: HYDROcodone-ACET 5/325MG TAB PO PRN (20:29)
[2024-06-28] VITALS (8 sets, daily range): BP systolic 89–117; BP diastolic 46–75; PULSE 59–78; RESP 16–20; TEMP 97.5–98.3; O2SAT 97–100
[2024-06-28] MEDS ORDERED: TIMO0.5S28 EACHEYE (00:08)
[2024-06-28] MEDS ORDERED: LATA0.008 EACHEYE (00:09)
[2024-06-28] MEDS ORDERED: IBUP200C3 PO (00:10)
[2024-06-28 07:47] LABS: Hematocrit 24.2 % (36.0-46.0)
--- NOTE | 2024-06-28 13:08 | DVHDS2 ---
Discharge Summary Date of Admission Jun 26, 2024 at 22:02 Date of Discharge: Jun 28, 2024 Admitting Diagnosis Symptomatic anemia Labs/Diagnostic Data: Laboratory Results Test 06/28/24 06:55 06/27/24 11:49 06/26/24 21:18 06/26/24 19:59 Hemoglobin 8.0 g/dL (12.2-16.2) Hematocrit 24.2 % (36.0-46.0) White Blood Count 3.3 10^3/uL (4.4-10.8) Red Blood Count 2.75 10^6/uL (4.0-5.20) Mean Corpuscular Volume 86.6 fL (80.0-100.0) Mean Corpuscular Hemoglobin 29.5 pg (28.0-32.0) Mean Corpuscular Hemoglobin Concent 34.1 g/dL (32.0-36.0) Red Cell Distribution Width 14.0 % (11.8-14.3) Platelet Count 258 10^3/uL (140-450) Mean Platelet Volume 7.2 fL (6.9-10.8) Neutrophils (%) (Auto) 73.8 % (37.0-80.0) Lymphocytes (%) (Auto) 15.2 % (10.0-50.0) Monocytes (%) (Auto) 9.9 % (0.0-12.0) Eosinophils (%) (Auto) 0.5 % (0.0-7.0) Basophils (%) (Auto) 0.6 % (0.0-2.0) Neutrophils # (Auto) 2.4 10 ^3/uL (1.6-8.6) Lymphocytes # (Auto) 0.5 10 ^3/uL (0.4-5.4) Monocytes # (Auto) 0.3 10 ^3/uL (0-1.3) Eosinophils # (Auto) 0 10 ^3/uL (0-0.8) Basophils # (Auto) 0 10 ^3/uL (0-0.2) Nucleated Red Blood Cells 0.0 % Sodium Level 141 mmol/L (136-145) Potassium Level 4.1 mmol/L (3.5-5.1) Chloride Level 110 mmol/L (98-107) Carbon Dioxide Level 27 mmol/L (20-31) Anion Gap 4 (5-15) Blood Urea Nitrogen 6 mg/dL (9-23) Creatinine 0.52 mg/dL (0.550-1.02) Glomerular Filtration Rate Calc 115 mL/min (>90) BUN/Creatinine Ratio 11.5 (10.0-20.0) Serum Glucose 120 mg/dL (74-106) Calcium Level 8.8 mg/dL (8.7-10.4) Total Bilirubin 0.4 mg/dL (0.2-1.0) Aspartate Amino Transferase (AST) < 8 U/L (13-40) Alanine Aminotransferase (ALT) 11 U/L (7-40) Alkaline Phosphatase 39 U/L (46-116) Troponin I High Sensitivity 23 ng/L (</=34) Total Protein 5.3 g/dL (5.7-8.2) Albumin 3.7 g/dL (3.2-4.8) Thyroid Stimulating Hormone (TSH) 2.35 uIU/mL (0.55-4.78) Lactic Acid Level 1.6 mmol/L (0.4-2.0) Test 06/26/24 19:20 06/26/24 18:36 Prothrombin Time 11.3 sec (9.3-11.8) Prothrombin Time INR 1.07 (0.9-1.15) Activated Partial Thromboplast Time 24.1 SEC (24.5-34.5) Magnesium Level 1.8 mg/dL (1.6-2.6) Follicle Stimulating Hormone 13.53 IU/L (SEE BELOW) Luteinizing Hormone 1.9 IU/L Beta HCG, Quantitative 0.1 mIU/mL (1.5-4.2) Urine Color Dark-red (Yellow) Urine Clarity Ex.turbid (Clear) Urine pH 6.5 (5.0-9.0) Urine Specific [place] 1.018 (1.001-1.035) Urine Protein 2+ (Negative) Urine Ketones Negative (Negative) Urine Blood 3+ /uL (Negative) Urine Nitrite Negative (Negative) Urine Bilirubin 2+ (Negative) Urine Urobilinogen Normal mg/dL (Negative) Urine Leukocyte Esterase 1+ /uL (Negative) Urine RBC Tntc /hpf (0 - 4) Urine WBC 5 /hpf (0 - 5) Urine Squamous Epithelial Cells Few /hpf (<5) Urine Bacteria None seen /hpf (None Seen) Urine Glucose Normal mg/dL (Normal) Urine Opiates Screen Pos (NEGATIVE) Urine Fentanyl Screen Neg (NEGATIVE) Urine Barbiturates Screen Neg (NEGATIVE) Urine Phencyclidine Screen Neg (NEGATIVE) Urine Amphetamines Screen Neg (NEGATIVE) Urine Benzodiazepines Screen Neg (NEGATIVE) Urine Cocaine Screen Neg (NEGATIVE) Urine Cannabinoids Screen Neg (NEGATIVE) Other Laboratory Tests 06/28/24 06:55 06/27/24 11:49 Brief Hx & Hospital Course: History of Present Illness 48-year-old female presents for evaluation of vaginal bleed. Patient reports having irregular bleeding that started a month ago and subsided. She states starting to bleed again two days ago, heavy clots and lower abdominal pain. She reports dizziness and shortness for breath. Denies chest pain. No other acute complaints reported. Course of hospitalization: Patient was given unit of PRBC. OBGYN consultation was obtained. Recommendations to have follow up as an outpatient given findings on vaginal ultrasound. Patient has had no drop in her H&H 24 hours after getting PRBC. Symptoms have resolved. She was agreeable to discharge plan to follow up with OBGYN. All questions answered. Physical examination General: Alert and Oriented x3. No acute distress. Well-nourished. Eyes: EOMI. Anicteric. HENT: Moist mucous membranes. Lungs: Clear to auscultation bilaterally. No accessory muscle use. Cardiovascular: Regular rate and rhythm. No murmur. No JVD. Abdomen: Soft, non-tender and non-distended. No palpable masses. Extremities: No edema. Non-tender. Skin: No rashes or lesions. Warm. Neurologic: No focal neurological deficits. CN II-XII grossly intact, but not individually tested. Psychiatric: Cooperative. Appropriate mood and affect. Total time spent with patient discussing and formulating plan of care: 35 minutes. This medical document was created using an electronic medical record system with [employer] dictation system. Although this document has been carefully reviewed, there may still be some phonetic and typographical errors. These areas are purely typographical due to imperfections of the software programs, and do not reflect any compromise in the patient's medical care. Consults/Reason for consult OBGYN: Excessive vaginal bleeding with anemia Cardiology consultation: Syncope Condition at Discharge: Fair Final Diagnosis/Problems List Symptomatic anemia Secondary Diagnosis: Excessive vaginal bleeding Probable endometriosis Discharge Disposition: Home Discharge Instruct/Medications Diet: Regular Activity: No Restrictions, As Tolerated Follow Up/Referral: OBGYN clinic in 1-2 weeks Discharge Clinic in one week 36 Discharge Statement: "Patient was advised to return to the ER or call 911 if any headaches, dizziness, shortness of breath, chest pain, abdominal pain, bleeding, fevers, or worsening of medical condition. Patient was counseled about treatment plan, medications, possible side effects, patientverbalized understanding. All questions were answered to the best of my ability. This discharge took greater then 30 minutes in planning, reviewing documentation, counseling the patient, and discussing with other team members." ASSESSMENT ASSESSMENT Assessment Symptomatic anemia Date of Service: Jun 28, 2024 Billing Provider: MICHAEL GUAMAN NP Common Visit Codes: 18699-[id number] CARE 30-74 MIN MICHAEL GUAMAN NP Jun 28, 2024 13:08
--- NOTE | 2024-06-28 13:10 | DVHPN2 ---
Subjective Patient continues to have some vaginal bleeding and dizziness Reviewed: Care Plan, H&P, Medications Changes from previous H/P or p: No Changes General: Per HPI Objective Vitals Vital Signs Date Time Temp Pulse Resp B/P (MAP) Pulse Ox O2 Delivery O2 Flow Rate FiO2 06/28/24 12:37 98.3 76 16 117/75 (89) 97 98.3 06/27/24 23:24 Room Air* 0 21 Intake/Output Intake and Output 06/28/24 07:00 Intake Total 864 ml Output Total 0 ml Balance 864 ml Intake Oral 100 ml IV Total 150 ml Blood Product 614 ml Output Urine Total 0 ml General Appearance: Alert, Oriented X3, Cooperative, mild distress HEENT: Atraumatic, PERRLA Lungs: Clear to auscultation Cardiovascular: Normal S1, Normal S2 Abdomen: Normal bowel sounds, Soft Genitourinary: No Apparent Abnormalities Musculoskeletal: Normal sensory function, Normal motor function Neuro: Normal gait, Normal speech Psych/Mental Status: Mental status NL, Mood NL Medications Current Medications Medications Dose Ordered Sig/Mick Route Start Time Stop Time Status Last Admin Dose Admin Temazepam 15 mg QHSP PRN PO 06/26/24 22:15 Ondansetron HCl 4 mg Q4HP PRN IV 06/26/24 22:15 06/27/24 20:29 4 MG Acetaminophen 650 mg Q6HP PRN PO 06/26/24 22:15 06/26/24 23:56 650 MG Nitroglycerin 0.4 mg Q5MINP PRN SL 06/26/24 22:15 Morphine Sulfate 2 mg Q30M PRN IV 06/26/24 22:15 06/27/24 01:17 2 MG Ceftriaxone Sodium 50 ml @ 100 mls/hr DAILY@09 IV 06/27/24 09:00 06/28/24 09:21 100 MLS/HR Acetaminophen/ Hydrocodone Bitart 1 tab Q8HPRN PRN PO 06/27/24 11:45 06/28/24 05:03 1 TAB Laboratory Results Laboratory Tests 06/27/24 11:49 06/28/24 06:55 Urinalysis Test 06/26/24 18:36 Urine Color Dark-red (Yellow) Urine Clarity Ex.turbid (Clear) Urine pH 6.5 (5.0-9.0) Urine Specific [place] 1.018 (1.001-1.035) Urine Protein 2+ (Negative) H Urine Ketones Negative (Negative) Urine Blood 3+ /uL (Negative) H Urine Nitrite Negative (Negative) Urine Bilirubin 2+ (Negative) H Urine Urobilinogen Normal mg/dL (Negative) Urine Leukocyte Esterase 1+ /uL (Negative) Urine RBC Tntc /hpf (0 - 4) Urine WBC 5 /hpf (0 - 5) Urine Squamous Epithelial Cells Few /hpf (<5) Urine Bacteria None seen /hpf (None Seen) Urine Glucose Normal mg/dL (Normal) Labs and/or images reviewed: Labs reviewed by me, Image(s) reviewed by me Assessment/Plan Assessment/Plan Impression: -symptomatic anemia -vaginal bleeding Plan: -OBGYN consultation Cardiology consultation PRBC transfusion Repeat labs in a.m., reassess for discharge in a.m. Total time spent with patient discussing and formulating plan of care: 35 minutes. This medical document was created using an electronic medical record system with [employer] dictation system. Although this document has been carefully reviewed, there may still be some phonetic and typographical errors. These areas are purely typographical due to imperfections of the software programs, and do not reflect any compromise in the patient's medical care. Plan discussed with: Patient, Other (RN) My Orders Orders - MICHAEL GUAMAN NP Procedure Category Date Status Time Regular Diet DIET 06/27/24 Transmitted Dinner * [employer] CONS 06/28/24 Transmitted Consult Discharge DISCHARGE 06/28/24 Transmitted 10:04 Schedule For Dc PATRICE 06/28/24 In Process Clinic F/U 10:04 Date of Service: Jun 27, 2024 Billing Provider: MICHAEL GUAMAN NP Common Visit Codes: [id number] INP/OBS CARE(HIGH) MICHAEL GUAMAN NP Jun 28, 2024 13:10
== END 2024-06-28 14:00 | disposition home or self-care (01) | DRG 811 ==
LOC: ER 17:41 → TELE 22:02 → TELE-WESTW 06-27 21:11
PROVIDERS: ADMIT Nurse Practitioner; ATTEND Nurse Practitioner Acute Care
PROC: 30233N1 Transfusion of Nonautologous Red Blood Cells into Peripheral Vein, Percutaneous Approach (ICD-10-PCS; 2024-06-26)
PROC: 30233K1 Transfusion of Nonautologous Frozen Plasma into Peripheral Vein, Percutaneous Approach (ICD-10-PCS; principal; 2024-06-27)
DX: D64.9 Anemia, unspecified (principal); I21.A1 Myocardial infarction type 2; N92.0 Excessive and frequent menstruation with regular cycle; E87.6 Hypokalemia; H40.89 Other specified glaucoma; N80.8 Other endometriosis; Z80.41 Family history of malignant neoplasm of ovary; Z79.899 Other long term (current) drug therapy
CPT/HCPCS: 36415; 76830; 76856; 80053; 80307; 81001; 83001; 83002; 83605; 83735; 84443; 84484; 84702; 85014; 85018; 85025; 85610; 85730; 86304; 86850; 86900; 86901; 86920; 93306; 99291; G0378; J2405